=== PATIENT | male | born 1940 | race Caucasian/White ===

== ENCOUNTER → 2017-07-18 | Outpatient (CLI) | payer MEDICARE | END | disposition home or self-care (01) | LOC: PCVCCLINIC 11:30 | DX: I25.810 Atherosclerosis of coronary artery bypass graft(s) without angina pectoris (principal); I10 Essential (primary) hypertension; G45.9 Transient cerebral ischemic attack, unspecified; E78.00 Pure hypercholesterolemia, unspecified; I77.9 Disorder of arteries and arterioles, unspecified; I71.2 Thoracic aortic aneurysm, without rupture; R94.31 Abnormal electrocardiogram [ECG] [EKG]; I45.10 Unspecified right bundle-branch block; Z79.899 Other long term (current) drug therapy; Z79.82 Long term (current) use of aspirin; Z79.01 Long term (current) use of anticoagulants | CPT/HCPCS: 80061; 85610; 93005; G0463 ==

== ENCOUNTER → 2018-04-01 | Outpatient (CLI) | payer MEDICARE | END | disposition home or self-care (01) | LOC: PCVCCLINIC 14:44 | PROVIDERS: ATTEND Internal Medicine Cardiovascular Disease | DX: I25.810 Atherosclerosis of coronary artery bypass graft(s) without angina pectoris (principal); I10 Essential (primary) hypertension; E78.00 Pure hypercholesterolemia, unspecified; G45.9 Transient cerebral ischemic attack, unspecified; D45 Polycythemia vera; Z79.82 Long term (current) use of aspirin; Z79.899 Other long term (current) drug therapy; Z79.01 Long term (current) use of anticoagulants | CPT/HCPCS: 80061; 93005; G0463 ==

== ENCOUNTER → 2018-07-14 | Outpatient (CLI) | payer MEDICARE ==
--- NOTE | 2018-07-14 15:36 | PCVCIMAG ---
APPROVED REPORT Study performed: 07/14/2018 13:05:28 Exam: Stress Echocardiogram Indication: CAD s/p CABG, Hypertension Patient Location: Echo lab Stress Nurse: Amaris Joseph RN Room #: 1 Status: routine Ht: 5 ft 11 in HR: 75 bpm BP: 120/72 mmHg Rhythm: RBBB, , First degree AV Block Medical History Medical History: CAD s/p CABG, Hyperlipidemia, HTN Cardiac Risk Factors: HTN, HTN Previous Cardiac Procedures: CABG Pretest Chest Pain Characteristics: No chest pain Exercise History: Physically active Procedure The patient underwent an Exercise Stress Test using the Yared Protocol. Blood pressure, heart rate, and EKG were monitored. An Echocardiogram was performed by coal gasification technician in four stages in quad fashion. At peak stress, four selected images were obtained and placed side by side with resting images for comparison. Stress Test Details Stress Test: Exercise stress testing was performed using a Yraed protocol. HR Resting HR: 75 bpmMax Heart Rate (APMHR): 144 bpm Max HR Achieved: 146 bpmTarget HR (85% APMHR): 122 bpm % of APMHR: 101 Recovery HR: 90 bpm HR response to stress: Normal HR response to stress BP Resting BP: 120/72 mmHg Max BP: 160/80 mmHg Recovery BP: 130/74 mmHg BP response to stress: Normal blood pressure response to stress. ECG Resting ECG: RBBB, , 1st degree AV block Stress ECG: RBBB, , 1st degree AV block ST Change: Non-ischemic Arrhythmia: frequent PVCs, Rare PACs Recovery ECG: RBBB, 1st degree AV block Recovery ST Change: RBBB, 1st degree AV block Recovery Arrhythmia: occasional PVCs Clinical Reason for Termination: Maximal effort Stress Symptoms: none Exercise duration: 11 min 00 sec Highest Stage Achieved: Stage 4: 4.2 mph at 16% grade. Exercise capacity: 13.7 METs Overall Exercise Capacity for Age: Good Scale: Active Angina Score: None No complications. Stress ECG Conclusion The patient exercised according to the YARED protocol for 11:00 mins; achieving a work level of 13.7 METS. The resting heart rate of 75 bpm vanessa to a maximum heart rate of 146 bpm. This value represent 101% of the maximal, age-predicted heart rate. The resting blood pressure of 120/72 mmHg, vanessa to a maximum blood pressure of 160/80mmHg. The exercise test was stopped due to fatigue. Pre-Stress Echo The resting Echocardiogram showed normal left ventricular contractility with an estimated Ejection Fraction of about 55-60%. Normal wall motion in all segments on baseline images. Post-Stress Echo The stress Echocardiogram showed normal left ventricular contractility with an estimated Ejection Fraction of about %. Normal augmentation of wall motion in all segments on post stress images. Clinical No clinical or ECG evidence for ischemia. Conclusion Clinical Response: Non-ischemic Exercise Capacity: Superior Stress ECG Response: Non-ischemic Stress Echo Images: Non-ischemic Normal stress echocardiogram with maximal exercise stress. No clinical, EKG or echocardiographic evidence for ischemia. Normal stress echocardiogram with submaximal exercise stress. Other Information Study Quality: Good <Conclusion> Normal stress echocardiogram with maximal exercise stress. No clinical, EKG or echocardiographic evidence for ischemia. Normal stress echocardiogram with submaximal exercise stress.
== END | disposition home or self-care (01) ==
LOC: PCVCIMAG 13:19
PROVIDERS: ATTEND Internal Medicine Cardiovascular Disease
DX: I25.810 Atherosclerosis of coronary artery bypass graft(s) without angina pectoris (principal); I10 Essential (primary) hypertension; Z95.1 Presence of aortocoronary bypass graft
CPT/HCPCS: 93325; 93351